=== PATIENT | female | born 1970 | race Caucasian/White ===

== ENCOUNTER 2022-01-31 15:43 | Emergency (ER) | payer OTHER, SELFPAY ==
[2022-01-31 16:00] VITALS: BP 183/108; PULSE 83; RESP 18; TEMP 36.7; O2SAT 99; BMI 29.2
[2022-01-31] MEDS: Ketorolac Tromethamine 60 MG/2 ML VIAL IM (17:17)
[2022-01-31] MEDS: Cyclobenzaprine HCl 10 MG TABLET PO (17:17)
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
[2022-01-31 17:53] VITALS: BP 148/92
== END 2022-01-31 18:02 | disposition home or self-care (01) ==
PROVIDERS: Emergency Provider Emergency Medicine
DX: Z04.1 Encounter for examination and observation following transport accident (principal); M54.2 Cervicalgia
CPT/HCPCS: 96372; 99284; J1885